=== PATIENT | male | born 1960 | race Caucasian/White ===

== ENCOUNTER 2018-03-04 11:58 | Emergency (ER) | payer MEDICAID ==
--- NOTE | 2018-03-04 12:18 | ED.PDOC ---
History of Present Illness - General Chief Complaint: Cardiovascular Problem Time Seen by Provider: 03/04/18 12:13 Source: patient Exam Limitations: other - PT IS VENT DEPENDENT. CAN ONLY INDICATE L LOWER CP. NO OTHER HX OR ROS AVAILABLE FROM PT. - History of Present Illness Initial Comments: C/O CP. WAS SENT FROM [facility] FOR L SIDED CP. IS CURRENTLY ON AUGMENTIN FOR PNEUMONIA. 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 Timing/Duration: other - TODAY Location: other - L LOWER THORAX Nitro Today/Relief: 0.4 mg x 1, no relief Allergies/Adverse Reactions: Allergies Lisinopril Allergy (Verified 03/04/18 12:24) Lorazepam [From Ativan] Allergy (Verified 03/04/18 12:24) Modafinil [From Provigil] Allergy (Verified 03/04/18 12:24) Review of Systems - Review of Systems Constitutional: States: see HPI EENTM: States: see HPI Respiratory: States: see HPI Cardiology: States: chest pain Gastrointestinal/Abdominal: States: see HPI Genitourinary: States: see HPI Musculoskeletal: States: see HPI Skin: States: see HPI Endocrine: States: see HPI Hematologic/Lymphatic: States: see HPI Family Medical History - Family History Mother Family History: Unknown Physical Exam - Physical Exam General Appearance: No apparent distress Eyes, Ears, Nose, Throat Exam: PERRL/EOMI Neck: non-tender, full range of motion, supple, other - PERMENANT TRACH Respiratory: lungs clear, normal breath sounds Cardiovascular/Chest: regular rate, rhythm, no murmur Gastrointestinal/Abdominal: normal bowel sounds, non tender, soft, no organomegaly, other - FEEDING TUBE LUQ Extremity: other - WASTING OF THE LE'S Neurologic: other - AWAKE, MOVES UPPER EXT Lymphatic: no adenopathy Progress - Progress Progress: 03/04/18 15:14 PT STABLE HEMODYNAMICALLY. LAB REVIEWED WILL ATTEMPT TO DISCUSS WITH PT'S . 03/04/18 15:22 D/W DR NEGRO WANTS PT ADMITTED. WILL GET LACTIC ACID AND PLAN TRANSFER TO [facility]. 03/04/18 16:09 D/W DR PIERRE, DR KEITA AT [facility] ACCEPTS PT IN TRANSFER. - EKG/XRAY/CT EKG: Sinus - RATE 92, NL AXIS, NL INTERVALS, , nonspecific ST T wave Chg - NAIP, NO OLD FOR COMPARISON XRAY: chest - LLL PNEUMONIA Departure - Departure Clinical Impression: Ventilator dependence Pneumonia Qualifiers: Pneumonia type: due to unspecified organism Laterality: left Lung location: lower lobe of lung Qualified Code(s): J18.1 - Lobar pneumonia, unspecified organism Hypertension Qualifiers: Hypertension type: essential hypertension Qualified Code(s): I10 - Essential (primary) hypertension ICD-10 Supporting Text: HCAP Time of Disposition: 16:18 Disposition: Transfer to Hospital Condition: Fair Departure Forms: ED Discharge - Pt. Copy, Patient Portal Self Enrollment Instructions: DI for Chest Pain Referrals: TAWANNA NEGRO [Primary Care Provider] - 1-2 Weeks Transfer to Outside Facility - Transfer Information Accepting Provider:: D/W GILMER GIBBS, ACCEPT PT Accepting Facility: [facility] Reason for Transfer: ICU
--- NOTE | 2018-03-04 12:48 | RAD ---
EXAM DESCRIPTION: Chest,1 View CLINICAL HISTORY: 57 years Male, CP COMPARISON: None. IMPRESSION: The inferior left lower lung zone is not fully included on the [id number]. A tracheostomy tube is present. The heart is enlarged with central pulmonary vascular congestion. Initial thickening in both lungs which may represent pulmonary edema, multifocal pneumonia, or severe interstitial fibrosis. More confluent left basilar opacities which may represent atelectasis, pneumonia, or focal fibrosis. Short interval follow-up recommended. No pneumothorax. No acute osseous abnormality. Electronically signed by: Christophe Chavez MD 03/04/2018 12:46 PM GREEN HIDE INSPECTOR
[2018-03-04] MEDS ORDERED: CEFEPIME 2 GM in SODIUM CHL 0.9% 50ML MIN-BAG+ 50 ML IVPB ONE (16:03)
[2018-03-04] MEDS ORDERED: CEFEPIME 2 GM VIAL ONE (16:08)
[2018-03-04] MEDS ORDERED: SODIUM CHL 0.9% 50ML MIN-BAG+ 50 ML IVPB ONE (16:09)
[2018-03-04 16:50] VITALS: O2SAT 98
[2018-03-04 17:46] VITALS: BP 136/52; TEMP 98.7
== END 2018-03-04 17:49 | disposition short-term general hospital (02) ==
LOC: ER 11:58
DX: J18.9 Pneumonia, unspecified organism (principal); I10 Essential (primary) hypertension; Z99.11 Dependence on respirator [ventilator] status; Z88.8 Allergy status to other drugs, medicaments and biological substances
CPT/HCPCS: 36415; 36600; 71045; 80053; 82803; 82805; 83605; 84484; 85025; 93005; 94002; 94770; J0692; J7050

== ENCOUNTER 2018-03-18 14:58 | Emergency (ER) | payer MEDICAID ==
[2018-03-18] MEDS ORDERED: ALPRAZolam 0.5 MG TAB ONE (15:00)
--- NOTE | 2018-03-18 16:03 | RAD ---
EXAM DESCRIPTION: Chest,1 View CLINICAL HISTORY: dyspnea COMPARISON: March 04, 2018 IMPRESSION: Single AP portable upright view of the chest shows enlargement of the cardiac silhouette without pulmonary vascular congestion. Tracheostomy tube remains in good positioning with tip at the level of the clavicular heads. Apical lordotic projection is seen with rotation of the patient. Chronic appearing increased interstitial markings in the right upper lobe are again noted. Linear platelike atelectasis over the right hemidiaphragm is seen. Patchy areas of interstitial increased density in the left infrahilar region have a similar appearance to previous exam which could represent atelectasis versus pneumonia versus chronic interstitial changes stable from previous. No pleural effusion or pneumothorax. Electronically signed by: Benigno Wiley MD 03/18/2018 4:02 PM CHUCK WAGON DRIVER
[2018-03-18] MEDS ORDERED: ALPRAZolam 0.25 MG TAB PO ONE (16:22)
[2018-03-18] MEDS ORDERED: AZTREONAM 1 GM in SODIUM CHL 0.9% 50ML MIN-BAG+ 50 ML IVPB ONE (16:48)
[2018-03-18] MEDS ORDERED: PIPERACILLIN/TAZOBACTAM 3.375 GM in SODIUM CHLORIDE 0.9% 100ML 100 ML IVPB ONE (16:48)
[2018-03-18] MEDS ORDERED: SODIUM CHLORIDE 0.9% 1000ML 1,000 ML IVS ONE (16:58)
[2018-03-18] MEDS ORDERED: AZTREONAM 1 GM VIAL ONE (17:08)
[2018-03-18] MEDS ORDERED: SODIUM CHL 0.9% 50ML MIN-BAG+ 50 ML IVPB ONE (17:08)
--- NOTE | 2018-03-18 17:09 | RAD ---
EXAM DESCRIPTION: Abdomen 1 View CLINICAL HISTORY: 57 years, Male, abdominal distension COMPARISON: None. FINDINGS: Marked gaseous dilatation of large and small bowel throughout the abdomen. Retained stool is noted on the right. Vascular calcifications are noted otherwise no pathologic calcifications are identified. Diffuse prominent interstitial markings in the lung bases. No pulmonary opacities. IMPRESSION: Marked diffuse gaseous dilatation of the bowel. Recommend further evaluation with CT of the abdomen and pelvis. Electronically signed by: Lizandro Hall DO 03/18/2018 5:08 PM [facility]
[2018-03-18] MEDS ORDERED: ZIPRASIDONE INJ 20 MG/ML VIAL IM ONE (17:17)
[2018-03-18] MEDS ORDERED: WATER FOR INJ 10 ML VIAL INJ ONE (17:49)
[2018-03-18] MEDS ORDERED: MORPHINE SULFATE INJ 10 MG/ML VIAL IV ONE (18:30)
--- NOTE | 2018-03-18 18:31 | CT ---
EXAM DESCRIPTION: Abdomen/Pelvis w/Contrast CLINICAL HISTORY:57 years Male, abdominal distension, leukocytosis Comparison: Radiographs obtained earlier today TECHNIQUE: Contiguous axial images of the abdomen and pelvis were obtained followed by reconstruction images. This exam was performed according to our departmental dose-optimization program, which includes automated exposure control, adjustment of the mA and/or kV according to patient size and/or use of iterative reconstruction technique. FINDINGS: Lung bases: There is either a right pneumothorax or large bulla in the right lung base. Bibasilar subsegmental atelectasis in the dependent portion of both lungs superimposed on chronic interstitial lung changes. No pleural fluid collections. Heart: Visualized heart is within normal limits in size. Liver:Unremarkable. No focal liver lesion. Gallbladder:Unremarkable. No gallstones. No gallbladder wall thickening or pericholecystic fluid. Spleen:Unremarkable Pancreas: Pancreas is unremarkable. Adrenal glands:Within normal limits. Kidneys/ureters: Multiple probable cystic changes in the right kidney. Left kidney is normal in appearance. No hydronephrosis or nephrolithiasis. Bladder:Chambers catheter terminating within the bladder. Pelvic organs: No acute abnormality Vascular structures: Diffuse atherosclerotic calcifications. Peritoneum: No free fluid. Lymph nodes: No abnormal lymph nodes. Stomach/small bowel/colon: Small hiatal hernia. G-tube terminates in the stomach. Diffuse dilatation of the large and small bowel. Maximal diameter of the small bowel measures up to 4 cm and maximal diameter of the large bowel measures up to 10 cm. There is a twisting in the root of the mesentery with focal decompression of the small bowel (images 50 through 55 series 2) scattered air-fluid levels are also noted. Retained stool is present throughout the colon. No free intraperitoneal air. No mucosal thickening. No pneumatosis. Appendix: Not clearly seen. Bones: No acute osseous abnormality. Soft tissues: Unremarkable.. IMPRESSION: Small bowel obstruction with transition point apparently related to torsion of the root of the mesentery with associated focal transition point as detailed above. In addition, the large bowel is also dilated with stool and gas up to 10 cm in maximal diameter. There is either a large bulla or a anterior pneumothorax in the right lung base. Recommend chest radiographs for further evaluation. Bibasilar subsegmental atelectasis superimposed on chronic interstitial lung changes. Electronically signed by: Lizandro Hall DO 03/18/2018 6:30 PM SAW OFFBEARER
[2018-03-18] MEDS ORDERED: PIPERACILLIN/TAZOBACTAM 3.375 GM VIAL IVPB ONE (19:48)
--- NOTE | 2018-03-18 19:49 | ED.PDOC ---
History of Present Illness - General Chief Complaint: Respiratory Problem Stated Complaint: low oxygen saturation, distended abd Time Seen by Provider: 03/18/18 15:28 Exam Limitations: clinical condition, other - intubated - History of Present Illness Initial Comments: Patient presents from [facility] after the staff thought he was restless and dyspneic. He is chronically intubated after an AMI this past month. He has been restless per staff. No other known complaints. Patient indicates by pointing, that he has pain in the abdomen. Timing/Duration: unsure Severity: moderate Improving Factors: nothing Worsening Factors: nothing Associated Symptoms: other - unable to obtain more information Allergies/Adverse Reactions: Allergies Lisinopril Allergy (Verified 03/04/18 12:24) Lorazepam [From Ativan] Allergy (Verified 03/04/18 12:24) Modafinil [From Provigil] Allergy (Verified 03/04/18 12:24) Home Medications: Ambulatory Orders Amoxicillin & Pot Clavulanate [Augmentin Tab] 875 mg PO BID 03/04/18 Atropine Sulfate (Ophthalmic) [Atropine Sulfate] 1 % SL Q4HR 03/04/18 Cyanocobalamin [Vitamin B12] 500 mcg PO DAILY 03/04/18 Digoxin 0.125 mg PEG DAILY 03/04/18 Diltiazem HCl 90 mg PEG Q6HR 03/04/18 Furosemide 40 mg PEG DAILY 03/04/18 Guaifenesin 500 mg PEG Q4HR 03/04/18 Ibuprofen 400 mg PO 03/04/18 Phenol (Antiseptic) [Chloraseptic] 2 spray MT Q4HR PRN 03/04/18 Polyethylene Glycol 3350 [Peg 3350] 1 pow PO YULIANA-OTH-DAY 03/04/18 Review of Systems - Review of Systems Unable to Obtain Due To: intubated Past Medical History (General) - Patient Medical History Hx Seizures: No Hx Stroke: No Hx of COPD: Yes Hx Congestive Heart Failure: Yes Hx Hypertension: Yes Hx Diabetes: No - Activities of Daily Living Senior Care/Assisted Living (if applicable):: [facility] Family Medical History - Family History Mother Family History: Unknown Physical Exam - Physical Exam General Appearance: Agitated Eye Exam: bilateral normal Ears, Nose, Throat: normal ENT inspection Neck: non-tender, full range of motion, supple Respiratory: other - bronchial sounds and transmitted tracheal tube sounds Cardiovascular/Chest: tachycardia Gastrointestinal/Abdominal: distended - tympanic and severly distended Skin Exam: normal color Lymphatic: no adenopathy Progress - Progress Progress: 03/18/18 19:51 cxr showed patchy infiltrate in left infrahilar region. CT abdomen/pelvis showed distension from SBO. wbc 19.6 Patient started on NS one liter IV bolus, Zosyn 3.375 grams IV and Aztreonam 1 gram IV. He was restless and pulling at his lines so he was given Xanax 1 mg which did not help. He was given Geodon 20 mg IM x one and calmed down. NG tube started for decompression. Patient transferred to [facility] . Laboratory Tests 03/18/18 03/18/18 03/18/18 15:50 15:50 15:50 WBC 19.3 H RBC 2.55 L Hgb 7.8 L* Hct 23.9 L MCV 93.8 MCH 30.5 MCHC 32.6 L RDW 16.8 H Plt Count 350 MPV 9.4 Absolute Neuts (auto) Not Reportable Absolute Lymphs (auto) Not Reportable Absolute Monos (auto) Not Reportable Absolute Eos (auto) Not Reportable Neutrophils % Not Reportable Lymphocytes % Not Reportable Monocytes % Not Reportable Monocytes % (Manual) Not Reportable Eosinophils % Not Reportable Basophils % Not Reportable PT 10.2 INR 1.02 PTT (SP) 28.9 Sodium 136 Potassium 4.6 Chloride 86 L Carbon Dioxide 36 H Anion Gap 18.6 H BUN 40 H Creatinine 1.37 H BUN/Creatinine Ratio 29.2 H Random Glucose 132 H Serum Osmolality 283.6 Lactic Acid Calcium 9.0 Total Bilirubin 0.5 AST 24 ALT 29 Alkaline Phosphatase 95 Creatine Kinase 92 CK-MB (CK-2) 3.4 CK-MB (CK-2) % Not Reportable Troponin I 0.04 B-Natriuretic Peptide 549.0 H* Serum Total Protein 7.7 Albumin 2.6 L Globulin 5.1 H Albumin/Globulin Ratio 0.5 L 03/18/18 17:10 WBC RBC Hgb Hct MCV MCH MCHC RDW Plt Count MPV Absolute Neuts (auto) Absolute Lymphs (auto) Absolute Monos (auto) Absolute Eos (auto) Neutrophils % Lymphocytes % Monocytes % Monocytes % (Manual) Eosinophils % Basophils % PT INR PTT (SP) Sodium Potassium Chloride Carbon Dioxide Anion Gap BUN Creatinine BUN/Creatinine Ratio Random Glucose Serum Osmolality Lactic Acid 1.9 Calcium Total Bilirubin AST ALT Alkaline Phosphatase Creatine Kinase CK-MB (CK-2) CK-MB (CK-2) % Troponin I B-Natriuretic Peptide Serum Total Protein Albumin Globulin Albumin/Globulin Ratio Departure - Departure Clinical Impression: Sepsis, Pneumonia, Small bowel obstruction Disposition: Transfer to Hospital Condition: Serious Departure Forms: ED Discharge - Pt. Copy, Patient Portal Self Enrollment Diet: other - NPO Activity: as per physical therapy Referrals: TAWANNA NEGRO [Primary Care Provider] - 1-2 Weeks Home Medications: Ambulatory Orders Amoxicillin & Pot Clavulanate [Augmentin Tab] 875 mg PO BID 03/04/18 Atropine Sulfate (Ophthalmic) [Atropine Sulfate] 1 % SL Q4HR 03/04/18 Cyanocobalamin [Vitamin B12] 500 mcg PO DAILY 03/04/18 Digoxin 0.125 mg PEG DAILY 03/04/18 Diltiazem HCl 90 mg PEG Q6HR 03/04/18 Furosemide 40 mg PEG DAILY 03/04/18 Guaifenesin 500 mg PEG Q4HR 03/04/18 Ibuprofen 400 mg PO 03/04/18 Phenol (Antiseptic) [Chloraseptic] 2 spray MT Q4HR PRN 03/04/18 Polyethylene Glycol 3350 [Peg 3350] 1 pow PO YULIANA-OTH-DAY 03/04/18
[2018-03-18] MEDS ORDERED: SODIUM CHLORIDE 0.9% 100ML 100 ML IVPB ONE (19:50)
[2018-03-18 21:27] VITALS: BP 112/68; TEMP 100; O2SAT 92
== END 2018-03-18 20:40 | disposition short-term general hospital (02) ==
LOC: ER 14:58
DX: A41.9 Sepsis, unspecified organism (principal); J18.9 Pneumonia, unspecified organism; K56.609 Unspecified intestinal obstruction, unspecified as to partial versus complete obstruction; J44.9 Chronic obstructive pulmonary disease, unspecified; I50.9 Heart failure, unspecified; I11.0 Hypertensive heart disease with heart failure; I25.2 Old myocardial infarction; Z79.899 Other long term (current) drug therapy; Z88.8 Allergy status to other drugs, medicaments and biological substances; Z99.11 Dependence on respirator [ventilator] status
CPT/HCPCS: 71045; 74018; 74177; 80053; 82550; 82553; 83605; 83880; 84484; 85025; 85610; 85730; 87040; 93005; 94002; 94770; A4216; J2270; J2543; J3486; J7030; J7050

== ENCOUNTER → 2018-04-12 | Outpatient (CLI) | payer MEDICAID | LOC: GOCC 18:56 | PROVIDERS: ATTEND Internal Medicine | DX: R09.3 Abnormal sputum (principal) ==

== ENCOUNTER 2018-04-15 06:50 | Emergency (ER) | payer MEDICAID ==
[2018-04-15] MEDS ORDERED: IPRATROPIUM/ALBUTEROL 3 ML VIAL NEB ONE ×4 (06:53→09:30)
[2018-04-15] MEDS ORDERED: ALBUTEROL SULFATE 2.5 MG/3 ML VIAL NEB ONE ×2 (07:12→07:29)
--- NOTE | 2018-04-15 07:14 | RAD ---
EXAM DESCRIPTION: Chest,1 View CLINICAL HISTORY:57 years Male, vent patient, low O2 sats Comparison: March 18, 2018 FINDINGS: Bibasilar opacities, left more pronounced on right representing atelectasis, scarring, aspiration or pneumonia. No pneumothorax appreciated. Endotracheal tube tip 10 cm above the marcus. Left central venous catheter tip at the SVC. Electronically signed by: Rl Mckenna MD 04/15/2018 7:13 AM MUSIC EXECUTIVE
[2018-04-15] MEDS ORDERED: ACETYLCYSTEIN 20 % 6,000 MG/30 ML VIAL ONE (07:29)
[2018-04-15] MEDS ORDERED: ACETYLCYSTEIN 20 % 6,000 MG/30 ML VIAL NEB ONE (07:35)
[2018-04-15] MEDS ORDERED: ALPRAZolam 0.25 MG TAB GT ONE (08:28)
[2018-04-15] MEDS ORDERED: ASPIRIN TABLET 325 MG TAB GT ONE (08:28)
[2018-04-15] MEDS ORDERED: MORPHINE SULFATE INJ 10 MG/ML VIAL IV ONE (08:29)
[2018-04-15] MEDS ORDERED: AZITHROMYCIN IV 500 MG in SODIUM CHLORIDE 0.9% 250ML 250 ML IVPB ONE (08:30)
[2018-04-15] MEDS ORDERED: CEFEPIME 1 GM in SODIUM CHLORIDE 0.9% 50ML 50 ML IVPB ONE (08:30)
[2018-04-15] MEDS ORDERED: CEFEPIME 2 GM VIAL ONE (08:50)
[2018-04-15] MEDS ORDERED: SODIUM CHLORIDE 0.9% 50ML 50 ML ONE (08:50)
--- NOTE | 2018-04-15 08:50 | ED.PDOC ---
History of Present Illness - General Chief Complaint: Respiratory Problem Stated Complaint: decreased oxygen sats Time Seen by Provider: 04/15/18 07:01 Source: patient Exam Limitations: no limitations - History of Present Illness Initial Comments: the patient is a 57-year-old male presenting to the emergency room by EMS secondary to respiratory distress. The patient is a long-term ventilator dependent patient that was sent out from [facility] this morning. he is currently undergoing treatment with Levaquin for a small pneumonia, which at least one of the nurses at the long-term care facility believes is Pseudomonas. The patient developed acute shortness of breath around 5 AM this morning. The patient is already on Eliquis presumably due to arrhythmia that he was experiencing several months ago after a myocardial infarction. the patient is having significant dyspnea and he is obviously anxious. He is diaphoretic. He does complain of some chest discomfort initially. The patient was having oxygen saturations at the snf down into the low 80s. He normally oxygenates well with 40-45% FiO2. Initially he was requiring 100% FiO2 here to maintain oxygen saturations of 90%. Patient's respiratory status did improve after several albuterol treatments as well as the Mucomyst treatment. Additionally aggressive suctioning did allow for removal of a significant plug. This did improve his tidal volumes up from around 300 cc to around 800 cc. Respiratory distress did improve after that and chest pain disappeared after that. EKG obtained with the patient in respiratory distress shows some mild lateral ST segment depression. These did resolve with symptom relief. No evidence of other arrhythmia. 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 No fevers reported. Timing/Duration: 1-3 hours Severity: severe Improving Factors: nothing Worsening Factors: nothing Associated Symptoms: chest pain, shortness of breath Allergies/Adverse Reactions: Allergies Lisinopril Allergy (Verified 03/04/18 12:24) Lorazepam [From Ativan] Allergy (Verified 03/04/18 12:24) Modafinil [From Provigil] Allergy (Verified 03/04/18 12:24) Home Medications: Ambulatory Orders Amoxicillin & Pot Clavulanate [Augmentin Tab] 875 mg PO BID 03/04/18 Atropine Sulfate (Ophthalmic) [Atropine Sulfate] 1 % SL Q4HR 03/04/18 Cyanocobalamin [Vitamin B12] 500 mcg PO DAILY 03/04/18 Digoxin 0.125 mg PEG DAILY 03/04/18 Diltiazem HCl 90 mg PEG Q6HR 03/04/18 Furosemide 40 mg PEG DAILY 03/04/18 Guaifenesin 500 mg PEG Q4HR 03/04/18 Ibuprofen 400 mg PO 03/04/18 Phenol (Antiseptic) [Chloraseptic] 2 spray MT Q4HR PRN 03/04/18 Polyethylene Glycol 3350 [Peg 3350] 1 pow PO YULIANA-OTH-DAY 03/04/18 Review of Systems - Review of Systems Review of Systems: 04/15/18 08:49 communication is somewhat limited due to the patient having a trach and being on the ventilator. Constitutional: States: diaphoresis EENTM: States: no symptoms reported Respiratory: States: short of breath, wheezing Cardiology: States: chest pain Gastrointestinal/Abdominal: States: no symptoms reported Genitourinary: States: no symptoms reported Musculoskeletal: States: other - chronic issues Neurological: States: anxiety Endocrine: States: no symptoms reported All other Systems: No Change from Baseline Past Medical History (General) - Patient Medical History Hx Seizures: No Hx Stroke: No Hx of COPD: Yes Hx Congestive Heart Failure: Yes Hx Hypertension: Yes Hx Diabetes: No - Activities of Daily Living Correction/Assisted Living (if applicable):: [facility] Family Medical History - Family History Mother Family History: Unknown Physical Exam - Physical Exam General Appearance: Alert, Anxious, Other - he is mildly confused initially. Eye Exam: bilateral normal Ears, Nose, Throat: hearing grossly normal, normal pharynx Neck: full range of motion, supple Respiratory: respiratory distress, decreased breath sounds, rales, rhonchi, wheezing Cardiovascular/Chest: no edema, other - mild sinus tachycardia initially Peripheral Pulses: radial,right: 2+, radial,left: 2+, dorsalis pedis,right: 2+, dorsalis pedis,left: 2+ Gastrointestinal/Abdominal: non tender, soft, other - obese, G-tube is in place Rectal Exam: deferred Back Exam: no CVA tenderness, no vertebral tenderness Extremity: normal range of motion, no pedal edema, normal capillary refill 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 Initially a little disoriented but that resolved with improvement in respiratory status. Skin Exam: pallor Comments: Vital Signs - 24 hr 04/15/18 04/15/18 04/15/18 06:56 07:01 08:00 Temperature 97.3 F L Pulse Rate [ 85 92 H Right] Respiratory 16 16 18 Rate Blood Pressure 122/67 105/59 [Right Arm] O2 Sat by Pulse 92 L 100 Oximetry Progress - Progress Progress: 04/15/18 08:54 the patient is a 57-year-old male with end-stage COPD and a recent heart attack presenting to the emergency room with acute respiratory distress. He is currently undergoing treatment for pneumonia with Levaquin and due to the the fact that the patient has persistent leukocytosis and increased infiltrates on x-ray the patient is going to be placed on cefepime and azithromycin. Blood cultures have been done. A sputum culture has been done. He has tested negative for the flu. The patient has a markedly elevated d-dimer. We do not have any previous to compare to. A pulmonary embolus is certainly a possibility for this patient. He is already on a potent blood thinner. Our CT scanner is currently down. He will need to have an evaluation for possible pulmonary emboli upon arrival. Additionally the patient did demonstrate some ischemia while he was under duress initially. Lateral mild ST segment depression as well as a small increase in the troponin does indicate the need for at least another set or 2 of cardiac enzymes. He has received an aspirin here as well as morphine, oxygen and again he is already on a potent blood thinner. He will need to have a repeat ABG. Initial PaCO2 was 81 however his baseline is closer to 60. This was done when the patient was in significant distress and I do expect it to improve. He has received albuterol, Atrovent and Mucomyst nebulizer treatments. He is resting much more comfortably at this point but is still requiring a significant increase in his FiO2 over baseline to maintain adequate oxygenation, but down from the 100% fio2 initially required. he has never been hypotensive. He does have some chronic anemia that is actually better today than a month ago. Given his cardiopulmonary status it may eventually prove beneficial to normalize his blood levels. Transferred for higher level of care. Critical care time spent on this patient for management of respiratory distress and length of care excluding otherwise billable procedures is 45 minutes. acceptance of transfer is greatly appreciated. - Results/Orders Results/Orders: 04/15/18 07:01 ABG shows a pH of 7.31 and a PaCO2 of 81. This was obtained while the patient was in respiratory distress. Normal PaCO2 for the patient is around 60. Initial EKG shows borderline sinus tachycardia with mild ST segment depression in V4 through V6. Other EKG changes are consistent with previous EKGs. Repeat EKG approximately 1 hour later shows resolution of the ST segment changes. Normal sinus rhythm. Normal QT interval. Chest x-ray shows increased bibasilar infiltrates. Laboratory Results - last 24 hr 04/15/18 04/15/18 04/15/18 07:12 07:12 07:12 WBC 20.0 H RBC 2.76 L Hgb 8.0 L Hct 26.0 L MCV 94.0 MCH 28.9 MCHC 31.0 L RDW 17.6 H Plt Count 343 MPV 9.9 Absolute Neuts (auto) Meat Molder Absolute Lymphs (auto) Meat Molder Absolute Monos (auto) Meat Molder Absolute Eos (auto) Meat Molder Absolute Basos (auto) Meat Molder Neutrophils % Meat Molder Neutrophils % (Manual) 91.0 H Lymphocytes % Meat Molder Lymphocytes % (Manual) 1.0 Monocytes % Meat Molder Monocytes % (Manual) 3.0 Eosinophils % Meat Molder Basophils % Meat Molder Band Neutrophils 5.0 H Platelet Estimate Normal Normal RBC Morphology Normal rbc morph PT 9.3 INR 0.93 PTT (SP) 30.5 D-Dimer, Quantitative 7.46 H* Sodium 141 Potassium 4.7 Chloride 91 L Carbon Dioxide 40 H Anion Gap 14.7 BUN 55 H Creatinine 1.29 BUN/Creatinine Ratio 42.6 H Random Glucose 150 H Serum Osmolality 299.2 H Lactic Acid Calcium 8.7 Total Bilirubin 0.3 AST 22 ALT 24 Alkaline Phosphatase 96 Creatine Kinase 12 L CK-MB (CK-2) 1.9 CK-MB (CK-2) % Not Reportable Troponin I 0.06 H B-Natriuretic Peptide 638.0 H* Serum Total Protein 7.1 Albumin 2.1 L Globulin 5.0 H Albumin/Globulin Ratio 0.4 L 04/15/18 07:12 WBC RBC Hgb Hct MCV MCH MCHC RDW Plt Count MPV Absolute Neuts (auto) Absolute Lymphs (auto) Absolute Monos (auto) Absolute Eos (auto) Absolute Basos (auto) Neutrophils % Neutrophils % (Manual) Lymphocytes % Lymphocytes % (Manual) Monocytes % Monocytes % (Manual) Eosinophils % Basophils % Band Neutrophils Platelet Estimate Normal RBC Morphology PT INR PTT (SP) D-Dimer, Quantitative Sodium Potassium Chloride Carbon Dioxide Anion Gap BUN Creatinine BUN/Creatinine Ratio Random Glucose Serum Osmolality Lactic Acid 0.9 Calcium Total Bilirubin AST ALT Alkaline Phosphatase Creatine Kinase CK-MB (CK-2) CK-MB (CK-2) % Troponin I B-Natriuretic Peptide Serum Total Protein Albumin Globulin Albumin/Globulin Ratio Departure - Departure Clinical Impression: Respiratory distress, Mucus plugging of bronchi, Cardiac ischemia, Elevated d- dimer, Ventilator dependent Disposition: Transfer to Hospital Condition: Serious Departure Forms: ED Discharge - Pt. Copy, Patient Portal Self Enrollment Referrals: TAWANNA NEGRO [Primary Care Provider] - 1-2 Weeks Home Medications: Ambulatory Orders Amoxicillin & Pot Clavulanate [Augmentin Tab] 875 mg PO BID 03/04/18 Atropine Sulfate (Ophthalmic) [Atropine Sulfate] 1 % SL Q4HR 03/04/18 Cyanocobalamin [Vitamin B12] 500 mcg PO DAILY 03/04/18 Digoxin 0.125 mg PEG DAILY 03/04/18 Diltiazem HCl 90 mg PEG Q6HR 03/04/18 Furosemide 40 mg PEG DAILY 03/04/18 Guaifenesin 500 mg PEG Q4HR 03/04/18 Ibuprofen 400 mg PO 03/04/18 Phenol (Antiseptic) [Chloraseptic] 2 spray MT Q4HR PRN 03/04/18 Polyethylene Glycol 3350 [Peg 3350] 1 pow PO YULIANA-OTH-DAY 03/04/18 Transfer to Outside Facility - Transfer Information Accepting Provider:: dr bowman Accepting Facility: [facility] Reason for Transfer: ICU
[2018-04-15] MEDS ORDERED: ALPRAZolam 0.5 MG TAB ONE (09:02)
[2018-04-15] MEDS: IPRATROPIUM/ALBUTEROL 3 ML VIAL NEB ONE ×2 (09:15→11:08)
[2018-04-15] MEDS ORDERED: AZITHROMYCIN IV 500 MG VIAL IVPB ONE (09:28)
[2018-04-15] MEDS ORDERED: SODIUM CHLORIDE 0.9% 250ML 250 ML ONE (09:28)
[2018-04-15 10:19] VITALS: BP 130/87; TEMP 99.4; O2SAT 93
== END 2018-04-15 09:56 | disposition short-term general hospital (02) ==
LOC: ER 06:50
DX: R06.03 Acute respiratory distress (principal); T17.590A Other foreign object in bronchus causing asphyxiation, initial encounter; I25.9 Chronic ischemic heart disease, unspecified; R79.89 Other specified abnormal findings of blood chemistry; J44.9 Chronic obstructive pulmonary disease, unspecified; I25.2 Old myocardial infarction; I50.9 Heart failure, unspecified; I11.0 Hypertensive heart disease with heart failure; D64.9 Anemia, unspecified; Z99.11 Dependence on respirator [ventilator] status; Z79.01 Long term (current) use of anticoagulants; Z79.899 Other long term (current) drug therapy; Z88.8 Allergy status to other drugs, medicaments and biological substances
CPT/HCPCS: 36600; 71045; 80053; 82550; 82553; 82803; 82805; 83605; 83880; 84484; 85025; 85379; 85610; 85730; 87040; 87070; 87205; 87502; 93005; 94002; 94640; 94760; 94770; A4216; J0456; J0692; J2270; J7050; J7611; J7620

== ENCOUNTER 2018-04-20 15:14 | Emergency (ER) | payer MEDICAID ==
--- NOTE | 2018-04-20 16:20 | RAD ---
EXAM DESCRIPTION: Chest,1 View CLINICAL HISTORY: 57 years Male, hypoxia COMPARISON: April 15, 2018. FINDINGS: Cardiac silhouette is accentuated by technique and patient rotation but appears slightly more prominent than on the last examination. Pericardial effusion not excluded. The cardiomediastinal silhouette is otherwise grossly unchanged. A tracheostomy tube and left long line catheter are again noted. There is slight prominence of pulmonary markings in the lower lung english, but this appears improved on the left compared to the last examination, and there also appears to be interval decrease in or resolution of infiltrative or atelectatic type changes in the right upper lobe and interstitial prominence in general. The lungs appear otherwise grossly clear. No gross pneumothorax identified on this upright portable film. IMPRESSION: Interval improvement in cardiopulmonary status except for apparent slightly greater prominence of the cardiac silhouette. Pericardial effusion is not excluded. Careful follow-up is suggested. Consider echocardiography if necessary. Electronically signed by: Sohail Perdomo MD 04/20/2018 4:18 PM [facility]
[2018-04-20] MEDS ORDERED: IPRATROPIUM/ALBUTEROL 3 ML VIAL NEB ONE (16:28)
[2018-04-20] MEDS ORDERED: ALBUTEROL SULFATE 2.5 MG/3 ML VIAL NEB ONE (16:57)
[2018-04-20] MEDS ORDERED: methylPREDNISolone SODIUM SUC 125 MG/2 ML VIAL IV ONE (16:57)
--- NOTE | 2018-04-20 17:24 | RAD ---
EXAM: Abdomen 1 View CLINICAL INDICATION: Abdominal pain COMPARISON: There is no previous study for comparison. FINDINGS: Two views of the abdomen were obtained. There is a nonspecific bowel gas pattern with no radiographic evidence of bowel obstruction. There are no dilated loops of small bowel. There is no evidence of pneumoperitoneum or pathologic calcifications. IMPRESSION: No evidence of an acute intraabdominal process. Electronically signed by: Beau Alvarado MD 04/20/2018 5:21 PM MAILING MANAGER
--- NOTE | 2018-04-20 17:32 | ED.PDOC ---
History of Present Illness - General Chief Complaint: Respiratory Problem Stated Complaint: Unable to keep O2 sats up Time Seen by Provider: 04/20/18 15:28 Source: RN notes reviewed, EMS, group home records, other - PCP verbal report - History of Present Illness Initial Comments: Patient is a vent dependant patient of [facility] who was transferred back to the [place] this morning. However, on the highest vent settings the [facility] had his O2 Sats were staying in the 85-90 range. Patient was transferred back to the ER. He cannot communicate with us secondary to brain anoxic injury and history was obtained by verbal consult with Dr. Tovar, the charge nurse, and EMS. Patient's next of kin was not able to be reached despite multiple attempts. Per PCP this gentleman had baseline COPD and went in for a spinal procedure. During his procedure he experienced respiratory distress and suffered brain anoxic injury. He was unable to come off the ventilator and was placed at the [place] approximately 3 months ago. 3 weeks ago the patient was hospitalized with pneumonia and is still getting treated with Unasyn at the [place] currently. Timing/Duration: 1-3 hours, getting worse Severity: moderate Activities at Onset: none Possible Cause: frequent episodes Improving Factors: nothing Worsening Factors: nothing Allergies/Adverse Reactions: Allergies Lisinopril Allergy (Verified 03/04/18 12:24) Lorazepam [From Ativan] Allergy (Verified 03/04/18 12:24) Modafinil [From Provigil] Allergy (Verified 03/04/18 12:24) Home Medications: Ambulatory Orders Amoxicillin & Pot Clavulanate [Augmentin Tab] 875 mg PO BID 03/04/18 Atropine Sulfate (Ophthalmic) [Atropine Sulfate] 1 % SL Q4HR 03/04/18 Cyanocobalamin [Vitamin B12] 500 mcg PO DAILY 03/04/18 Digoxin 0.125 mg PEG DAILY 03/04/18 Diltiazem HCl 90 mg PEG Q6HR 03/04/18 Furosemide 40 mg PEG DAILY 03/04/18 Guaifenesin 500 mg PEG Q4HR 03/04/18 Ibuprofen 400 mg PO 03/04/18 Phenol (Antiseptic) [Chloraseptic] 2 spray MT Q4HR PRN 03/04/18 Polyethylene Glycol 3350 [Peg 3350] 1 pow PO YULIANA-OTH-DAY 03/04/18 Review of Systems - Review of Systems Review of Systems: 04/20/18 17:35 unable to obtain secondary to LOC/chronic condition Past Medical History (General) - Patient Medical History Hx Seizures: No Hx Stroke: No Hx of COPD: Yes Hx Congestive Heart Failure: Yes Hx Hypertension: Yes Hx Diabetes: No - Vaccination History Hx Influenza Vaccination: - unknown Hx Pneumococcal Vaccination: - unknown - Activities of Daily Living [facility]/Assisted Living (if applicable):: [facility] Family Medical History - Family History Mother Family History: No Known Physical Exam - Physical Exam General Appearance: Frail, No apparent distress Eyes, Ears, Nose, Throat Exam: PERRL/EOMI, normal ENT inspection, TMs normal, pharynx normal Neck: non-tender, full range of motion, supple, normal inspection Respiratory: chest non-tender, lungs clear, normal breath sounds, no respiratory distress Cardiovascular/Chest: normal peripheral pulses, regular rate, rhythm, no edema, no gallop, no JVD, no murmur Gastrointestinal/Abdominal: normal bowel sounds, non tender, soft, tenderness - TTP to RUQ with no Skin Exam: normal color Progress - Results/Orders Results/Orders: 04/20/18 15:28 ABG [Arterial Blood Gas] Stat 04/20/18 16:21 Mechanical Ventilation RTQ4 Laboratory Results WBC 14.4 K/mm3 (4.8-10.8) H 04/20/18 15:28 RBC 3.17 M/mm3 (4.70-6.10) L 04/20/18 15:28 Hgb 9.4 gm/dL (14.0-18.0) L 04/20/18 15:28 Hct 29.2 % (42.0-52.0) L 04/20/18 15:28 MCV 92.1 fl (80.0-94.0) 04/20/18 15:28 MCH 29.6 pg (27.0-31.0) 04/20/18 15:28 MCHC 32.1 g/dL (33.0-37.0) L 04/20/18 15:28 RDW 17.3 % (11.5-14.5) H 04/20/18 15:28 Plt Count 412 K/mm3 (130-400) H 04/20/18 15:28 MPV 9.4 fl (7.40-10.4) 04/20/18 15:28 Absolute Neuts (auto) 12.50 K/uL (1.8-6.8) H 04/20/18 15:28 Absolute Lymphs (auto) 0.60 K/uL (1.0-3.4) L 04/20/18 15:28 Absolute Monos (auto) 1.10 K/uL (0.2-0.8) H 04/20/18 15:28 Absolute Eos (auto) 0.10 K/uL (0.0-0.4) 04/20/18 15:28 Absolute Basos (auto) 0.20 K/uL (0.0-0.1) H 04/20/18 15:28 Neutrophils % 86.3 % (42.0-78.0) H 04/20/18 15:28 Lymphocytes % 4.1 % (20.0-50.0) L 04/20/18 15:28 Monocytes % 7.7 % (2.0-9.0) 04/20/18 15:28 Eosinophils % 0.4 % (1.0-5.0) L 04/20/18 15:28 Basophils % 1.5 % (0.0-2.0) 04/20/18 15:28 Sodium 138 mmol/L (135-145) 04/20/18 15:28 Potassium 3.2 mmol/L (3.6-5.0) L 04/20/18 15:28 Chloride 91 mmol/L (101-111) L 04/20/18 15:28 Carbon Dioxide 37 mmol/L (21-31) H 04/20/18 15:28 Anion Gap 13.2 (12-18) 04/20/18 15:28 BUN 37 mg/dL (7-18) H 04/20/18 15:28 Creatinine 0.93 mg/dL (0.6-1.3) 04/20/18 15:28 BUN/Creatinine Ratio 39.8 (10-20) H 04/20/18 15:28 Random Glucose 124 mg/dL (70-105) H 04/20/18 15:28 Serum Osmolality 285.8 mOsm/L (275-295) 04/20/18 15:28 Lactic Acid 0.9 mmol/L (0.5-2.2) 04/20/18 15:28 Calcium 8.5 mg/dL (8.4-10.2) 04/20/18 15:28 Total Bilirubin 0.6 mg/dL (0.2-1.0) 04/20/18 15:28 AST 18 IU/L (10-42) 04/20/18 15:28 ALT 21 IU/L (10-60) 04/20/18 15:28 Alkaline Phosphatase 89 IU/L (42-121) 04/20/18 15:28 Serum Total Protein 6.4 gm/dL (6.4-8.2) 04/20/18 15:28 Albumin 2.0 g/dl (3.2-5.5) L 04/20/18 15:28 Globulin 4.4 gm/dL (2.3-3.5) H 04/20/18 15:28 Albumin/Globulin Ratio 0.5 (1.1-1.9) L 04/20/18 15:28 Patient Name: ANNE GARZON Gender: Male Date of : 1960 Referring Physician: JEFF DIETZ Organization: [facility] Accession Number: [id number] Requested Date: April 20, 2018 15:28 Report Status: Final Requested Procedure: 1 Procedure Description: Chest,1 View Modality: CR Findings Reporting MD: Sohail Perdomo Fellow MD: Not available Dictation Time: Content Development Manager: Not available Processing Operator Date: EXAM DESCRIPTION: Chest,1 View CLINICAL HISTORY: 57 years Male, hypoxia COMPARISON: April 15, 2018. FINDINGS: Cardiac silhouette is accentuated by technique and patient rotation but appears slightly more prominent than on the last examination. Pericardial effusion not excluded. The cardiomediastinal silhouette is otherwise grossly unchanged. A tracheostomy tube and left long line catheter are again noted. There is slight prominence of pulmonary markings in the lower lung english, but this appears improved on the left compared to the last examination, and there also appears to be interval decrease in or resolution of infiltrative or atelectatic type changes in the right upper lobe and interstitial prominence in general. The lungs appear otherwise grossly clear. No gross pneumothorax identified on this upright portable film. IMPRESSION: Interval improvement in cardiopulmonary status except for apparent slightly greater prominence of the cardiac silhouette. Pericardial effusion is not excluded. Careful follow-up is suggested. Consider echocardiography if necessary Departure - Departure Clinical Impression: Ventilator dependence, Hypoxemia Disposition: Transfer to Hospital Departure Forms: ED Discharge - Pt. Copy, Patient Portal Self Enrollment Referrals: TAWANNA TOVAR [Primary Care Provider] - 1-2 Weeks Home Medications: Ambulatory Orders Amoxicillin & Pot Clavulanate [Augmentin Tab] 875 mg PO BID 03/04/18 Atropine Sulfate (Ophthalmic) [Atropine Sulfate] 1 % SL Q4HR 03/04/18 Cyanocobalamin [Vitamin B12] 500 mcg PO DAILY 03/04/18 Digoxin 0.125 mg PEG DAILY 03/04/18 Diltiazem HCl 90 mg PEG Q6HR 03/04/18 Furosemide 40 mg PEG DAILY 03/04/18 Guaifenesin 500 mg PEG Q4HR 03/04/18 Ibuprofen 400 mg PO 03/04/18 Phenol (Antiseptic) [Chloraseptic] 2 spray MT Q4HR PRN 03/04/18 Polyethylene Glycol 3350 [Peg 3350] 1 pow PO YULIANA-OTH-DAY 03/04/18 Transfer to Outside Facility - Transfer Information Accepting Facility: [facility] Reason for Transfer: specialized care not available
[2018-04-20 18:17] VITALS: O2SAT 92
[2018-04-20 19:12] VITALS: BP 119/76; TEMP 98
== END 2018-04-20 18:50 | disposition short-term general hospital (02) ==
LOC: ER 15:14
DX: R09.02 Hypoxemia (principal); J44.9 Chronic obstructive pulmonary disease, unspecified; I50.9 Heart failure, unspecified; I11.0 Hypertensive heart disease with heart failure; Z99.11 Dependence on respirator [ventilator] status; Z79.899 Other long term (current) drug therapy; Z88.8 Allergy status to other drugs, medicaments and biological substances
CPT/HCPCS: 71045; 74018; 80053; 83605; 85025; 94002; 94640; J2930; J7611; J7620

== ENCOUNTER 2018-05-09 19:51 | Emergency (ER) | payer MEDICAID ==
[2018-05-09] MEDS ORDERED: ONDANSETRON INJ 4 MG/2 ML VIAL IV ONE (20:31)
[2018-05-09 20:36] VITALS: O2SAT 97
--- NOTE | 2018-05-09 20:59 | RAD ---
EXAM DESCRIPTION: Chest,1 View CLINICAL HISTORY: 57 years Male vomiting COMPARISON: Portable chest 04/20/2018 TECHNIQUE: A single frontal projection of the chest is obtained but is positioned in the RPO projection. FINDINGS: Heart: Allowing for magnification factors related to RPO portable technique , the heart appears mildly prominent. Vasculature: The aorta is unremarkable with the exception of tortuosity and atherosclerosis.. The pulmonary vascularity is normal. Mediastinum: Unremarkable otherwise. No evidence of mass or adenopathy. Lungs: There is diffuse interstitial prominence throughout the left lung. Minimal patchy density is noted in the left mid to lower lung which may indicate a small area of atelectasis and/or pneumonia. Pleural spaces: . There are no pneumothoraces. Suspect trace right pleural fluid. No evidence of left pleural fluid. Osseous structures: There is no evidence of acute fracture, osseous destruction or osteoblastic lesions. Tubes and catheters: A tracheostomy tube terminates above the marcus at a distance of 8.2 cm. A left peripherally inserted central venous catheter lies with its tip projecting along the junction of the innominate veins or proximal superior vena cava. Upper abdomen: No acute findings. Chest wall: Unremarkable. IMPRESSION: There is diffuse interstitial prominence particularly throughout the left lung which may be exaggerated by the RPO positioning. Minimal patchy density is noted in the left mid to lower lung which may indicate a small area of atelectasis and/or pneumonia. Suspect mild fluid overload with mild cardiomegaly and possible trace right pleural fluid. Remainder of findings as described above. Electronically signed by: Bella Leonard MD 05/09/2018 8:56 PM [facility]
--- NOTE | 2018-05-09 20:59 | ED.PDOC ---
History of Present Illness - General Chief Complaint: GI Problem Time Seen by Provider: 05/09/18 20:34 Source: EMS, [facility] Exam Limitations: clinical condition, physical impairment - History of Present Illness Initial Comments: Patient presents from [facility] after having an episode of coffee ground emesis. Labs were taken and it was found that the patient had a hemoglobin below 7. Upon arrival, the patient is chronically intubated and vitals are stable. He does have a history of anemia. No other history is available. Timing/Duration: unsure Severity: moderate Improving Factors: nothing Worsening Factors: nothing Associated Symptoms: other - see HPI Allergies/Adverse Reactions: Allergies Lisinopril Allergy (Verified 03/04/18 12:24) Lorazepam [From Ativan] Allergy (Verified 03/04/18 12:24) Modafinil [From Provigil] Allergy (Verified 03/04/18 12:24) Home Medications: Ambulatory Orders Amoxicillin & Pot Clavulanate [Augmentin Tab] 875 mg PO BID 03/04/18 Atropine Sulfate (Ophthalmic) [Atropine Sulfate] 1 % SL Q4HR 03/04/18 Cyanocobalamin [Vitamin B12] 500 mcg PO DAILY 03/04/18 Digoxin 0.125 mg PEG DAILY 03/04/18 Diltiazem HCl 90 mg PEG Q6HR 03/04/18 Furosemide 40 mg PEG DAILY 03/04/18 Guaifenesin 500 mg PEG Q4HR 03/04/18 Ibuprofen 400 mg PO 03/04/18 Phenol (Antiseptic) [Chloraseptic] 2 spray MT Q4HR PRN 03/04/18 Polyethylene Glycol 3350 [Peg 3350] 1 pow PO YULIANA-OTH-DAY 03/04/18 Review of Systems - Review of Systems Unable to Obtain Due To: intubated, clinical condition Past Medical History (General) - Patient Medical History Hx Seizures: No Hx Stroke: No Hx of COPD: Yes Hx Congestive Heart Failure: Yes Hx Hypertension: Yes Hx Diabetes: No Surgical History: other - Vaccination History Hx Influenza Vaccination: - unknown Hx Pneumococcal Vaccination: - unknown - Social History Hx Tobacco Use: No Hx Alcohol Use: No - Activities of Daily Living Care Home/Assisted Living (if applicable):: [facility] Family Medical History - Family History Mother Family History: No Known Physical Exam - Physical Exam General Appearance: Alert Eye Exam: bilateral normal Ears, Nose, Throat: normal ENT inspection Neck: non-tender, full range of motion, supple Respiratory: chest non-tender, lungs clear Cardiovascular/Chest: normal peripheral pulses, regular rate, rhythm Gastrointestinal/Abdominal: normal bowel sounds, non tender, soft Skin Exam: pallor Progress - Progress Progress: 05/09/18 21:51 Laboratory Tests 05/09/18 05/09/18 05/09/18 20:00 20:00 20:00 WBC 13.0 H RBC 2.01 L Hgb 6.1 L* Hct 18.8 L MCV 93.7 MCH 30.5 MCHC 32.5 L RDW 17.4 H Plt Count 404 H MPV 9.1 Absolute Neuts (auto) 10.80 H Absolute Lymphs (auto) 0.50 L Absolute Monos (auto) 1.60 H Absolute Eos (auto) 0.00 Absolute Basos (auto) 0.10 Neutrophils % 82.6 H Lymphocytes % 4.0 L Monocytes % 12.5 H Eosinophils % 0.3 L Basophils % 0.6 PT 10.0 INR 1.00 PTT (SP) 30.6 Sodium 136 Potassium 4.3 Chloride 85 L Carbon Dioxide 38 H Anion Gap 17.3 BUN 28 H Creatinine 0.71 BUN/Creatinine Ratio 39.4 H Random Glucose 96 Serum Osmolality 277.3 Calcium 8.8 Total Bilirubin < 0.2 L AST 21 ALT 24 Alkaline Phosphatase 72 Serum Total Protein 6.6 Albumin 2.2 L Globulin 4.4 H Albumin/Globulin Ratio 0.5 L Urine Color Urine Appearance Urine pH Ur Specific [place] Urine Protein Urine Glucose (UA) Urine Ketones Urine Blood Urine Nitrite Urine Bilirubin Urine Urobilinogen Ur Leukocyte Esterase Urine RBC Urine WBC Ur Epithelial Cells Urine Bacteria Digoxin 05/09/18 05/09/18 20:00 20:11 WBC RBC Hgb Hct MCV MCH MCHC RDW Plt Count MPV Absolute Neuts (auto) Absolute Lymphs (auto) Absolute Monos (auto) Absolute Eos (auto) Absolute Basos (auto) Neutrophils % Lymphocytes % Monocytes % Eosinophils % Basophils % PT INR PTT (SP) Sodium Potassium Chloride Carbon Dioxide Anion Gap BUN Creatinine BUN/Creatinine Ratio Random Glucose Serum Osmolality Calcium Total Bilirubin AST ALT Alkaline Phosphatase Serum Total Protein Albumin Globulin Albumin/Globulin Ratio Urine Color Yellow Urine Appearance Clear Urine pH 8.5 H Ur Specific [place] 1.015 Urine Protein Trace Urine Glucose (UA) Negative Urine Ketones Negative Urine Blood Negative Urine Nitrite Negative Urine Bilirubin Negative Urine Urobilinogen 0.2 Ur Leukocyte Esterase Negative Urine RBC 0 Urine WBC 3-5 H Ur Epithelial Cells 5-10 Urine Bacteria 1+ Digoxin 0.7 L CXR showed LLL PNA. Blood cultures taken. Zosyn 3.375 g and Aztreonam 1 g star dino. NS at 250 ml/hr started. EKG showed atrial fibrillation. Hb 6.1 is the lowest on our records for the patient. Protonix 80 mg IV x one then Octreotide 50 mcg x one followed by 50 mcg/hr started for GI bleed. Patient transferred to ICU at [facility] per Dr. Wong. Departure - Departure Clinical Impression: Gastrointestinal bleed, Anemia, Pneumonia, Ventilator dependence Disposition: Discharge to Home or Self Care Departure Forms: ED Discharge - Pt. Copy, Patient Portal Self Enrollment Referrals: TAWANNA NEGRO [Primary Care Provider] - 1-2 Weeks Home Medications: Ambulatory Orders Amoxicillin & Pot Clavulanate [Augmentin Tab] 875 mg PO BID 03/04/18 Atropine Sulfate (Ophthalmic) [Atropine Sulfate] 1 % SL Q4HR 03/04/18 Cyanocobalamin [Vitamin B12] 500 mcg PO DAILY 03/04/18 Digoxin 0.125 mg PEG DAILY 03/04/18 Diltiazem HCl 90 mg PEG Q6HR 03/04/18 Furosemide 40 mg PEG DAILY 03/04/18 Guaifenesin 500 mg PEG Q4HR 03/04/18 Ibuprofen 400 mg PO 03/04/18 Phenol (Antiseptic) [Chloraseptic] 2 spray MT Q4HR PRN 03/04/18 Polyethylene Glycol 3350 [Peg 3350] 1 pow PO YULIANA-OTH-DAY 03/04/18 Critical Care Note - Critical Care Note Total Time (mins): 60 Decision To Admit - Decistion To Admit Decision to Admit Reason: Medical Nature Decision to Admit Date: 05/09/18 Decision to Admit Time: 21:54 Transfer to Outside Facility - Transfer Information Accepting Provider:: Marvin Accepting Facility: [facility] Reason for Transfer: ICU
[2018-05-09] MEDS ORDERED: PIPERACILLIN/TAZOBACTAM 3.375 GM in SODIUM CHLORIDE 0.9% 100ML 100 ML IVPB ONE (21:02)
[2018-05-09] MEDS ORDERED: AZTREONAM 1 GM in SODIUM CHL 0.9% 50ML MIN-BAG+ 50 ML IVPB ONE (21:02)
[2018-05-09] MEDS ORDERED: PIPERACILLIN/TAZOBACTAM 3.375 GM VIAL IVPB ONE (21:07)
[2018-05-09] MEDS ORDERED: AZTREONAM 1 GM VIAL ONE (21:07)
[2018-05-09] MEDS ORDERED: SODIUM CHLORIDE 0.9% 100ML 100 ML IVPB ONE ×2 (21:07→21:32)
[2018-05-09] MEDS ORDERED: SODIUM CHL 0.9% 50ML MIN-BAG+ 50 ML IVPB ONE (21:07)
[2018-05-09] MEDS ORDERED: PANTOPRAZOLE SODIUM IV 40 MG VIAL IV ONE (21:19)
[2018-05-09] MEDS ORDERED: OCTREOTIDE ACETATE 500 MCG in SODIUM CHLORIDE 0.9% 100ML 100 ML IVPB SCH (21:30)
[2018-05-09] MEDS ORDERED: OCTREOTIDE ACETATE 100 MCG/ML VIAL ONE (21:33)
[2018-05-09 21:52] VITALS: BP 114/64
[2018-05-09] MEDS ORDERED: SODIUM CHLORIDE 0.9% 1000ML 1,000 ML ONE (21:54)
[2018-05-09] MEDS ORDERED: SODIUM CHLORIDE 0.9% 1000ML 1,000 ML IVS PRN (21:55)
[2018-05-09 22:26] VITALS: TEMP 98.1
== END 2018-05-09 22:26 | disposition short-term general hospital (02) ==
LOC: ER 19:51
DX: K92.0 Hematemesis (principal); D64.9 Anemia, unspecified; J18.9 Pneumonia, unspecified organism; J44.9 Chronic obstructive pulmonary disease, unspecified; I50.9 Heart failure, unspecified; I11.0 Hypertensive heart disease with heart failure; Z99.11 Dependence on respirator [ventilator] status; Z79.899 Other long term (current) drug therapy; Z88.8 Allergy status to other drugs, medicaments and biological substances
CPT/HCPCS: 36415; 71045; 80053; 80162; 81001; 85025; 85610; 85730; 87040; 93005; 94002; J2354; J2405; J2543; J7030; J7050

== ENCOUNTER 2018-06-29 06:23 | Emergency (ER) | payer OTHER ==
--- NOTE | 2018-06-29 06:36 | ED.PDOC ---
History of Present Illness - General Source: EMS Exam Limitations: clinical condition - ventilatory support and tracheostomy, physical impairment - History of Present Illness Initial Comments: Matias Roman 57 y/o male resident at [facility] on chronic ventilatory support brought by EMS after he was found to have difficulty breathing and low oxygen saturation Sao2 83 % then he was taken off vent and was BVM ventilated brought his O2 saturation to 96 % then was brought here.Has history of COPD and anoxic encephalopathy after a procedure had went into cardiorespiratory arrest was on chronic ventilatory support since then. Timing/Duration: just prior to arrival Episode Description: see hpi Possible Cause: occasional episodes Improving Factors: nothing Worsening Factors: other - see hpi Associated Symptoms: shortness of breath, other - see hpi <Pavel Pena - Last Filed: 06/29/18 07:08> <JEFF DIETZ - Last Filed: 06/29/18 09:22> - General Chief Complaint: Respiratory Problem Stated Complaint: shortness of breath low oxygen saturation Time Seen by Provider: 06/29/18 06:34 - History of Present Illness Allergies/Adverse Reactions: Allergies Lisinopril Allergy (Verified 03/04/18 12:24) Lorazepam [From Ativan] Allergy (Verified 03/04/18 12:24) Modafinil [From Provigil] Allergy (Verified 03/04/18 12:24) Home Medications: Ambulatory Orders Cyanocobalamin [Vitamin B12] 500 mcg PO DAILY 03/04/18 Digoxin 0.125 mg PEG DAILY 03/04/18 Diltiazem HCl 90 mg PEG Q6HR 03/04/18 Furosemide 40 mg PEG DAILY 03/04/18 Guaifenesin 500 mg PEG Q4HR 03/04/18 Ibuprofen 400 mg PO 5XD 03/04/18 Polyethylene Glycol 3350 [Peg 3350] 1 pow PO YULIANA-OTH-DAY 03/04/18 ALPRAZolam [Xanax] 0.25 mg PO DAILY 06/29/18 Acetaminophen Liquid [Tylenol Liquid] 160 mg DAILY 06/29/18 Acetaminophen W/ Codeine [Tylenol w/Codeine 300-30 mg] 1 tab PO 5XD 06/29/18 Budesonide (Inhalation) [Budesonide] 0.5 mg IN DAILY 06/29/18 Folic Acid 1 mg PO DAILY 06/29/18 Ipratropium-Albuterol [Ipratropium [place]/Albut] 1 galileo IN 5XD 06/29/18 Ondansetron HCl [Zofran] 4 mg PO BID 06/29/18 Pantoprazole Tablet [Protonix] 40 mg PO ACBK 06/29/18 Scopolamine Patch 1.5MG [Transderm-Scop Patch] 1 ea TD YULIANA-OTH-DAY 06/29/18 Simethicone [Mylanta Gas] 80 mg PO BID 06/29/18 Review of Systems - Review of Systems Unable to Obtain Due To: condition - ventilatory support, clinical condition <DemetrisCalixto mckenzieZhao R - Last Filed: 06/29/18 07:08> Past Medical History (General) - Patient Medical History Hx Seizures: No Hx Stroke: No Hx of COPD: Yes Hx Congestive Heart Failure: Yes Hx Hypertension: Yes Hx Diabetes: No Surgical History: other - tracheostomy - Vaccination History Hx Influenza Vaccination: - unknown Hx Pneumococcal Vaccination: - unknown - Social History Hx Tobacco Use: No Hx Alcohol Use: No <JeanZhao R - Last Filed: 06/29/18 07:08> Family Medical History - Family History Mother Family History: No Known <JeanKvngo R - Last Filed: 06/29/18 07:08> Physical Exam - Physical Exam General Appearance: Alert, Other - non verbal due to tracheostomy tube Eye Exam: bilateral normal, bilateral other - PERRL ENT Exam: hearing grossly normal, pharynx normal, other - points with finger Neck: trachea midline, other - patent tracheostomy Respiratory: decreased breath sounds Cardiovascular/Chest: regular rate, rhythm, no murmur Gastrointestinal/Abdominal: soft, no organomegaly, other - patent sue indwelling cath;PEG TUBE intact Extremity: no pedal edema, other - contracture knee;ankle Neurologic: alert, other - awake Skin Exam: normal color, warm/dry <JeanCalixtoZhao R - Last Filed: 06/29/18 07:08> Progress - Progress Progress: 06/29/18 07:02 Vital Signs - 8 hr 06/29/18 06/29/18 06:34 06:43 Temperature 96.0 F L Pulse Rate 98 H Pulse Rate [ 98 H 98 H monitor] Respiratory 12 22 Rate Blood Pressure 122/66 [Right Arm] O2 Sat by Pulse 94 L Oximetry <Pavel Pena R - Last Filed: 06/29/18 07:08> - Progress Progress: Attempted call [id number] to next of kin and no answer. 06/29/18 08:03 - Results/Orders Results/Orders: 06/29/18 06:45 EKG STAT 06/29/18 07:07 SVN/Updraft Therapy .PRN 06/29/18 07:18 Piperacillin/Tazobactam [Zosyn] 4.5 gm Sodium Chloride 0.9% 100Ml [NS (NACL 0.9%) 100ml] 100 ml IVPB ONCE 06/29/18 07:44 Mechanical Ventilation DAILY 06/29/18 07:45 Capnography .ONCE Laboratory Results WBC 15.4 K/mm3 (4.8-10.8) H 06/29/18 07:04 RBC 2.75 M/mm3 (4.70-6.10) L 06/29/18 07:04 Hgb 8.2 gm/dL (14.0-18.0) L 06/29/18 07:04 Hct 25.7 % (42.0-52.0) L 06/29/18 07:04 MCV 93.7 fl (80.0-94.0) 06/29/18 07:04 MCH 30.0 pg (27.0-31.0) 06/29/18 07:04 MCHC 32.0 g/dL (33.0-37.0) L 06/29/18 07:04 RDW 15.7 % (11.5-14.5) H 06/29/18 07:04 Plt Count 504 K/mm3 (130-400) H 06/29/18 07:04 MPV 8.8 fl (7.40-10.4) 06/29/18 07:04 Absolute Neuts (auto) 13.10 K/uL (1.8-6.8) H 06/29/18 07:04 Absolute Lymphs (auto) 0.60 K/uL (1.0-3.4) L 06/29/18 07:04 Absolute Monos (auto) 1.60 K/uL (0.2-0.8) H 06/29/18 07:04 Absolute Eos (auto) 0.10 K/uL (0.0-0.4) 06/29/18 07:04 Absolute Basos (auto) 0.10 K/uL (0.0-0.1) 06/29/18 07:04 Neutrophils % 85.0 % (42.0-78.0) H 06/29/18 07:04 Lymphocytes % 3.8 % (20.0-50.0) L 06/29/18 07:04 Monocytes % 10.2 % (2.0-9.0) H 06/29/18 07:04 Eosinophils % 0.6 % (1.0-5.0) L 06/29/18 07:04 Basophils % 0.4 % (0.0-2.0) 06/29/18 07:04 pCO2 98 mmHg (35-48) H* 06/29/18 06:46 pO2 71 mmHg (83-108) L 06/29/18 06:46 HCO3 48.9 mmol/L 06/29/18 06:46 ABG pH 7.320 (7.35-7.45) L 06/29/18 06:46 ABG O2 Saturation 94.3 % (95.0-99.0) L 06/29/18 06:46 ABG Base Excess 20.4 mmol/L 06/29/18 06:46 ABG Deoxyhemoglobin 5.5 % (0.0-5.0) H 06/29/18 06:46 Oxyhemoglobin % 92.1 % (94.0-98.0) L 06/29/18 06:46 Carboxyhemoglobin % -0.2 % (0.5-1.5) L 06/29/18 06:46 Methemoglobin % Sat 2.6 % (0.0-1.5) H 06/29/18 06:46 Calc Total Hemoglobin 7.9 g/dL (13.5-17.5) L 06/29/18 06:46 Sodium 138 mmol/L (135-145) 06/29/18 07:04 Potassium 4.4 mmol/L (3.6-5.0) 06/29/18 07:04 Chloride 83 mmol/L (101-111) L 06/29/18 07:04 Carbon Dioxide 40 mmol/L (21-31) H 06/29/18 07:04 Anion Gap 19.4 (12-18) H 06/29/18 07:04 BUN 37 mg/dL (7-18) H 06/29/18 07:04 Creatinine 0.98 mg/dL (0.6-1.3) 06/29/18 07:04 BUN/Creatinine Ratio 37.8 (10-20) H 06/29/18 07:04 Random Glucose 152 mg/dL (70-105) H 06/29/18 07:04 Serum Osmolality 287.3 mOsm/L (275-295) 06/29/18 07:04 Lactic Acid 0.8 mmol/L (0.5-2.2) 06/29/18 07:04 Calcium 9.9 mg/dL (8.4-10.2) 06/29/18 07:04 Total Bilirubin 0.4 mg/dL (0.2-1.0) 06/29/18 07:04 AST 22 IU/L (10-42) 06/29/18 07:04 ALT 28 IU/L (10-60) 06/29/18 07:04 Alkaline Phosphatase 72 IU/L (42-121) 06/29/18 07:04 Creatine Kinase 19 IU/L (38-174) L 06/29/18 07:04 CK-MB (CK-2) 1.9 ng/mL (0.0-4.4) 06/29/18 07:04 CK-MB (CK-2) % Not Reportable 06/29/18 07:04 Troponin I 0.03 ng/mL (0.01-0.05) 06/29/18 07:04 Serum Total Protein 8.5 gm/dL (6.4-8.2) H 06/29/18 07:04 Albumin 2.2 g/dl (3.2-5.5) L 06/29/18 07:04 Globulin 6.3 gm/dL (2.3-3.5) H 06/29/18 07:04 Albumin/Globulin Ratio 0.3 (1.1-1.9) L 06/29/18 07:04 Chest xray Findings: an airspace opacity has developed along the left mid lung. There is scarring along the right lung apex. The heart is normal in size. There is no pneumothorax or pleural effusion. Bones are demineralized. A tracheostomy tube is in place. Impression: Airspace opacity along the left mid lung, concerning for pneumonia <JEFF DIETZ - Last Filed: 06/29/18 09:22> Departure <Pavel Pena - Last Filed: 06/29/18 07:08> <JEFF DIETZ - Last Filed: 06/29/18 09:22> - Departure Clinical Impression: Ventilator dependence Pneumonia Qualifiers: Pneumonia type: due to unspecified organism Laterality: left Lung location: lower lobe of lung Qualified Code(s): J18.1 - Lobar pneumonia, unspecified organism Disposition: Transfer to Hospital Condition: Fair Departure Forms: ED Discharge - Pt. Copy, Patient Portal Self Enrollment Referrals: TAWANNA NEGRO [Primary Care Provider] - 1-2 Weeks Home Medications: Ambulatory Orders Cyanocobalamin [Vitamin B12] 500 mcg PO DAILY 03/04/18 Digoxin 0.125 mg PEG DAILY 03/04/18 Diltiazem HCl 90 mg PEG Q6HR 03/04/18 Furosemide 40 mg PEG DAILY 03/04/18 Guaifenesin 500 mg PEG Q4HR 03/04/18 Ibuprofen 400 mg PO 5XD 03/04/18 Polyethylene Glycol 3350 [Peg 3350] 1 pow PO YULIANA-OTH-DAY 03/04/18 ALPRAZolam [Xanax] 0.25 mg PO DAILY 06/29/18 Acetaminophen Liquid [Tylenol Liquid] 160 mg DAILY 06/29/18 Acetaminophen W/ Codeine [Tylenol w/Codeine 300-30 mg] 1 tab PO 5XD 06/29/18 Budesonide (Inhalation) [Budesonide] 0.5 mg IN DAILY 06/29/18 Folic Acid 1 mg PO DAILY 06/29/18 Ipratropium-Albuterol [Ipratropium [place]/Albut] 1 galileo IN 5XD 06/29/18 Ondansetron HCl [Zofran] 4 mg PO BID 06/29/18 Pantoprazole Tablet [Protonix] 40 mg PO ACBK 06/29/18 Scopolamine Patch 1.5MG [Transderm-Scop Patch] 1 ea TD YULIANA-OTH-DAY 06/29/18 Simethicone [Mylanta Gas] 80 mg PO BID 06/29/18 Transfer to Outside Facility - Transfer Information Accepting Provider:: Bro Accepting Facility: [facility] Reason for Transfer: specialized care not available <JEFF DIETZ - Last Filed: 06/29/18 09:22>
[2018-06-29] MEDS ORDERED: IPRATROPIUM/ALBUTEROL 3 ML VIAL NEB ONE (07:06)
[2018-06-29] MEDS ORDERED: methylPREDNISolone SODIUM SUC 125 MG/2 ML VIAL IV ONE (07:07)
[2018-06-29] MEDS ORDERED: PIPERACILLIN/TAZOBACTAM 4.5 GM in SODIUM CHLORIDE 0.9% 100ML 100 ML IVPB ONE (07:18)
[2018-06-29] MEDS ORDERED: PIPERACILLIN/TAZOBACTAM 2.25 GM VIAL IVPB ONE (07:22)
[2018-06-29] MEDS ORDERED: SODIUM CHLORIDE 0.9% 100ML 100 ML IVPB ONE (07:22)
--- NOTE | 2018-06-29 07:27 | RAD ---
EXAM: Single view chest. INDICATION: Dyspnea. COMPARISON: Chest x-ray: 05/09/2018. FINDINGS: An airspace opacity has developed along the left midlung. There is scarring along the right lung apex. The heart is normal in size. There is no pneumothorax or pleural effusion. Bones are demineralized. A tracheostomy tube is in place. IMPRESSION: Airspace opacity along the left midlung, concerning for pneumonia. Electronically signed by: Sergio Magallanes MD 06/29/2018 7:24 AM CDT Workstation: [id number]
[2018-06-29 10:33] VITALS: O2SAT 92
[2018-06-29 10:44] VITALS: BP 120/72; TEMP 97.8
== END 2018-06-29 10:00 | disposition short-term general hospital (02) ==
LOC: ER 06:23
DX: J18.1 Lobar pneumonia, unspecified organism (principal); J44.9 Chronic obstructive pulmonary disease, unspecified; I50.9 Heart failure, unspecified; I11.0 Hypertensive heart disease with heart failure; Z99.11 Dependence on respirator [ventilator] status; Z79.899 Other long term (current) drug therapy
CPT/HCPCS: 36415; 36600; 71045; 80053; 81001; 82550; 82553; 82803; 82805; 83605; 84484; 85025; 87086; 93005; 94002; 94640; 94770; J2543; J2930; J7050; J7620

== ENCOUNTER 2018-07-06 10:02 | Emergency (ER) | payer OTHER ==
--- NOTE | 2018-07-06 11:36 | ED.PDOC ---
History of Present Illness - General Chief Complaint: Cardiac Respiratory Arrest Stated Complaint: cardiac arrest Time Seen by Provider: 07/06/18 10:12 Source: Vital Signs reviewed, EMS, prison records Exam Limitations: clinical condition - History of Present Illness Initial Comments: reportedly prison staff said he became dyspneic & diaphoretic followed soon after by cardiopulmonary arrest. They started CPR - unknown if delayed - & when EMS arrived he was in asystole. He was transported with CPR, ventilation via his trach & a total of 2 mg of epi given without change. He was here recently for pneumonia & transferred to [place]. Timing/Duration: 1/2 hour Severity: severe Improving Factors: nothing Worsening Factors: nothing Nitro Today/Relief: no nitro taken today Aspirin Treatment Today: no aspirin today Allergies/Adverse Reactions: Allergies Lisinopril Allergy (Verified 03/04/18 12:24) Lorazepam [From Ativan] Allergy (Verified 03/04/18 12:24) Modafinil [From Provigil] Allergy (Verified 03/04/18 12:24) Home Medications: Ambulatory Orders Cyanocobalamin [Vitamin B12] 500 mcg PO DAILY 03/04/18 Digoxin 0.125 mg PEG DAILY 03/04/18 Diltiazem HCl 90 mg PEG Q6HR 03/04/18 Furosemide 40 mg PEG DAILY 03/04/18 Guaifenesin 500 mg PEG Q4HR 03/04/18 Ibuprofen 400 mg PO 5XD 03/04/18 Polyethylene Glycol 3350 [Peg 3350] 1 pow PO YULIANA-OTH-DAY 03/04/18 ALPRAZolam [Xanax] 0.25 mg PO DAILY 06/29/18 Acetaminophen Liquid [Tylenol Liquid] 160 mg DAILY 06/29/18 Acetaminophen W/ Codeine [Tylenol w/Codeine 300-30 mg] 1 tab PO 5XD 06/29/18 Budesonide (Inhalation) [Budesonide] 0.5 mg IN DAILY 06/29/18 Folic Acid 1 mg PO DAILY 06/29/18 Ipratropium-Albuterol [Ipratropium [place]/Albut] 1 galileo IN 5XD 06/29/18 Ondansetron HCl [Zofran] 4 mg PO BID 06/29/18 Pantoprazole Tablet [Protonix] 40 mg PO ACBK 06/29/18 Scopolamine Patch 1.5MG [Transderm-Scop Patch] 1 ea TD YULIANA-OTH-DAY 06/29/18 Simethicone [Mylanta Gas] 80 mg PO BID 06/29/18 Review of Systems - Review of Systems Constitutional: States: no symptoms reported Respiratory: States: see HPI Cardiology: States: see HPI Gastrointestinal/Abdominal: States: diarrhea Genitourinary: States: no symptoms reported Musculoskeletal: States: no symptoms reported Skin: States: no symptoms reported Neurological: States: see HPI Hematologic/Lymphatic: States: no symptoms reported Past Medical History (General) - Patient Medical History Hx Seizures: No Hx Stroke: No Hx of COPD: Yes Hx Congestive Heart Failure: Yes Hx Hypertension: Yes Hx Diabetes: No - Vaccination History Hx Influenza Vaccination: - unknown Hx Pneumococcal Vaccination: - unknown - Social History Hx Tobacco Use: No Hx Alcohol Use: No - Activities of Daily Living Jail/Assisted Living (if applicable):: [facility] Family Medical History - Family History Mother Family History: No Known Physical Exam - Physical Exam General Appearance: Other - CPR being given with a palpable pulse Eyes, Ears, Nose, Throat Exam: other - PERRL Neck: limited range of motion, other - trach - difficulty in ventilating. Better with upward siplacement of the trach. Able to pass a suction catheter but with difficulty Respiratory: other - agonal respirations, decreased Vt & increased resistance. Decreased sounds on the right as compared to the left Cardiovascular/Chest: bradycardia, tachycardia - beats initially but increased with epi here, extra beats, other Gastrointestinal/Abdominal: soft, other - diarrhea stool Extremity: no pedal edema, slow capillary refill Neurologic: other - unresponsive Progress - Progress Progress: 07/06/18 11:40 In summary, 57 yo male with a h/o of anoxic encephalopathy & trach/vent dependence presented in cardiopulmonary arrest. He did seem to respond to epinephrine but he most markedly improved after his trach was removed & an endotracheal tube was placed through the stoma (bougie through the trach, trach removed, 6.0 tube passed over the bougie). His breath sounds much improved & there was little resistance. His right thorax had been needled by me prior to the ET tube placement but there was no soto of air. His CXR does not show a pneumothorax. ABG = 7.35/62/162. Inspection of the trach did not reveal any structural abnormalities. Procedures - Intubation Time of Intubation: 10:45 - trach removed & intubated via the stoma Tube Size (cm): 6.0 Breath Sounds after Intubation: equal Intubation Complications: no complications Post Intubation Xray: Yes Progress/Xray Impression: tip 1 inch above the marcus. No pneumothorax. - Additional Procedures Progress: Needle decompression of the right chest at the midclavicular line 2nd ICS was performed empirically but no soto of air felt & no improvement. Departure - Departure Clinical Impression: Cardiac arrest, Respiratory arrest, Ventilator dependence Pneumonia Qualifiers: Pneumonia type: due to unspecified organism Laterality: unspecified laterality Lung location: unspecified part of lung Qualified Code(s): J18.9 - Pneumonia, unspecified organism Time of Disposition: 11:56 Disposition: Transfer to Hospital Condition: Poor Home Medications: Ambulatory Orders Cyanocobalamin [Vitamin B12] 500 mcg PO DAILY 03/04/18 Digoxin 0.125 mg PEG DAILY 03/04/18 Diltiazem HCl 90 mg PEG Q6HR 03/04/18 Furosemide 40 mg PEG DAILY 03/04/18 Guaifenesin 500 mg PEG Q4HR 03/04/18 Ibuprofen 400 mg PO 5XD 03/04/18 Polyethylene Glycol 3350 [Peg 3350] 1 pow PO YULIANA-OTH-DAY 03/04/18 ALPRAZolam [Xanax] 0.25 mg PO DAILY 06/29/18 Acetaminophen Liquid [Tylenol Liquid] 160 mg DAILY 06/29/18 Acetaminophen W/ Codeine [Tylenol w/Codeine 300-30 mg] 1 tab PO 5XD 06/29/18 Budesonide (Inhalation) [Budesonide] 0.5 mg IN DAILY 06/29/18 Folic Acid 1 mg PO DAILY 06/29/18 Ipratropium-Albuterol [Ipratropium [place]/Albut] 1 galileo IN 5XD 06/29/18 Ondansetron HCl [Zofran] 4 mg PO BID 06/29/18 Pantoprazole Tablet [Protonix] 40 mg PO ACBK 06/29/18 Scopolamine Patch 1.5MG [Transderm-Scop Patch] 1 ea TD YULIANA-OTH-DAY 06/29/18 Simethicone [Mylanta Gas] 80 mg PO BID 06/29/18 Critical Care Note - Critical Care Note Total Time (mins): 60 Transfer to Outside Facility - Transfer Information Accepting Facility: [facility] Reason for Transfer: ICU
[2018-07-06 12:18] VITALS: BP 79/41; TEMP 96; O2SAT 97
[2018-07-06] MEDS ORDERED: EPINEPHrine INJ 0.1 MG/ML 10 ML SYG IV ONE ×4 (12:21→12:23)
[2018-07-06] MEDS ORDERED: SODIUM CHLORIDE 0.9% 1000ML 1,000 ML IVS ONE (12:23)
[2018-07-06] MEDS ORDERED: ATROPINE 1 MG/10 ML SYG IV ONE (12:23)
[2018-07-06] MEDS ORDERED: DOPamine PREMIX 400 MG in PREMIX BAG 1 BAG IVPB SCH (12:30)
== END 2018-07-06 12:17 | disposition short-term general hospital (02) ==
LOC: ER 10:02
DX: I46.9 Cardiac arrest, cause unspecified (principal); J18.9 Pneumonia, unspecified organism; J44.9 Chronic obstructive pulmonary disease, unspecified; I50.9 Heart failure, unspecified; I11.0 Hypertensive heart disease with heart failure; Z99.11 Dependence on respirator [ventilator] status; Z79.899 Other long term (current) drug therapy; Z88.8 Allergy status to other drugs, medicaments and biological substances
CPT/HCPCS: 36600; 71045; 80048; 80162; 82550; 82553; 82803; 82805; 83880; 84484; 85025; 85379; 85610; 85730; 87040; 92950; 93005; 94002; 94770; J1265; J7030